=== PATIENT | male | born 1985 | race African-American/Black ===

== ENCOUNTER 2018-09-21 19:33 | Emergency (ER) | payer OTHER ==
[~2018-09-21] VITALS: Ht 175.3 cm; Wt 81.4 kg
[2018-09-21] MEDS ORDERED: IBUP-1022 PO (21:09)
[2018-09-21] MEDS ORDERED: AUGM875T28 PO (21:09)
[2018-09-21] MEDS ORDERED: NORCOTAB PO (21:09)
[2018-09-21] MEDS ORDERED: IBUPROFEN 800 MG TAB PO ONE (21:15)
[2018-09-21] MEDS ORDERED: AUGMENTIN 875 MG TAB PO ONE (21:15)
[2018-09-21] MEDS ORDERED: ACETAMINOPHEN 325 MG TAB PO ONE (21:15)
[2018-09-21 21:19] VITALS: BP 125/77
== END 2018-09-21 21:21 | disposition home or self-care (01) ==
LOC: M ED 19:33
DX: S02.5XXA Fracture of tooth (traumatic), initial encounter for closed fracture (principal); K02.9 Dental caries, unspecified; X58.XXXA Exposure to other specified factors, initial encounter; Y92.89 Other specified places as the place of occurrence of the external cause; F17.200 Nicotine dependence, unspecified, uncomplicated